=== PATIENT | female | born 2005 | race African-American/Black ===

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

== ENCOUNTER 2024-02-19 19:59 | Emergency (ER) | payer OTHER ==
[~2024-02-19] VITALS: Ht 154.9 cm; Wt 71.8 kg
[2024-02-19 20:02] VITALS: TEMP 98.5
[2024-02-19] MEDS ORDERED: ACET1TAB55 PO (20:12)
[2024-02-19] MEDS: METOCLOPRAMIDE INJ 10MG/2ML VIAL IV ONE (23:40)
[2024-02-19 23:41] LABS: EOS % 0.1 % (0.0-3.0); HEMATOCRIT 35.3 % (36.0-47.0); HEMOGLOBIN 11.8 g/dl (12.0-15.5); LYMPH # 2.3 10^3/uL (1.5-5.0); LYMPH % 27.9 % (24.0-44.0); MEAN CORPUSCULAR HEMOGLOBIN 31.3 pg (27.0-33.0); MEAN CORPUSCULAR HGB CONC 33.4 g/dl (32.0-36.5); MEAN CORPUSCULAR VOLUME 93.6 fl (80.0-96.0); MONO # 0.8 10^3/uL (0.0-0.8); MONO % 9.2 % (2.0-8.0); NEUTROPHILS # 5.2 10^3/uL (1.5-8.5); NEUTROPHILS % 62.6 % (36.0-66.0); PLATELET COUNT, AUTOMATED 140 10^3/uL (150-450); RED BLOOD COUNT 3.77 10^6/uL (4.00-5.40); WHITE BLOOD COUNT 8.4 10^3/uL (4.0-10.0)
[2024-02-19] MEDS: ACETAMINOPHEN *IV* 1,000 MG in IV 1 EA IV ONE (23:46)
[2024-02-20 00:06] LABS: BLOOD UREA NITROGEN 9 MG/DL (9-23); CALCIUM LEVEL 9.3 MG/DL (8.5-10.1); CARBON DIOXIDE LEVEL 23 MMOL/L (20-31); CHLORIDE LEVEL 108 MMOL/L (98-107); CREATININE FOR GFR 1.07 MG/DL (0.55-1.30); GLUCOSE, FASTING 95 MG/DL (60-100); MAGNESIUM LEVEL 1.8 MG/DL (1.8-2.4); POTASSIUM SERUM 4.1 MMOL/L (3.5-5.1); SODIUM LEVEL 141 MMOL/L (136-145)
[2024-02-20 00:08] LABS: THYROID STIMULATING HORMONE 2.517 uIU/ML (0.48-4.17)
[2024-02-20 00:14] LABS: HCG, SERUM QUALITATIVE NEGATIVE (NEGATIVE)
[2024-02-20] MEDS: MAG SULF 1GM/100ML (MAG RUN) 1 GM in IV 1 EA IV ONE (00:20)
[2024-02-20] MEDS ORDERED: KETOROLAC 30 MG/ML 1ML VIAL IV ONE (00:40)
[2024-02-20 01:00] VITALS: BP 116/62; O2SAT 99
[2024-02-20] MEDS ORDERED: FIOR1CAP PO (01:27)
== END 2024-02-20 01:58 | disposition home or self-care (01) ==
LOC: M ED 19:59
DX: G43.909 Migraine, unspecified, not intractable, without status migrainosus (principal); Z79.1 Long term (current) use of non-steroidal anti-inflammatories (NSAID)
CPT/HCPCS: 70450; 80048; 83735; 84443; 84703; 85025; 96374; 96375; 99284; J0131; J1100; J2765; J3475

== ENCOUNTER 2024-09-10 11:18 | Emergency (ER) | payer OTHER ==
[~2024-09-10] VITALS: Ht 157.5 cm; Wt 66.5 kg
[~2024-09-10 11:18] MED LIST: ACET1TAB55 PO; FIOR1CAP PO
[2024-09-10 11:25] VITALS: BP 117/57; TEMP 97.6; O2SAT 100
== END 2024-09-10 12:20 | disposition home or self-care (01) ==
LOC: M ED 11:18
DX: N91.2 Amenorrhea, unspecified (principal); R01.1 Cardiac murmur, unspecified

== ENCOUNTER 2024-11-23 15:21 | Emergency (ER) | payer OTHER ==
[~2024-11-23] VITALS: Ht 157.5 cm; Wt 70.4 kg
[2024-11-23 17:16] LABS: HCG, SERUM QUALITATIVE NEGATIVE (NEGATIVE)
[2024-11-23 18:29] LABS: CALCIUM LEVEL 9.5 MG/DL (8.5-10.1); CARBON DIOXIDE LEVEL 28 MMOL/L (20-31); CHLORIDE LEVEL 105 MMOL/L (98-107); CREATININE FOR GFR 1.29 MG/DL (0.55-1.30); GLOMERULAR FILTRATION RATE 60.9 (>60); POTASSIUM SERUM 3.9 MMOL/L (3.5-5.1); SODIUM LEVEL 138 MMOL/L (136-145)
[2024-11-23 18:32] LABS: BASO # 0.0 10^3/uL (0.0-0.2); BASO % 0.3 % (0.0-1.0); EOS # 0.1 10^3/uL (0.0-0.5); EOS % 0.7 % (0.0-3.0); LYMPH # 3.0 10^3/uL (1.5-5.0); LYMPH % 39.0 % (24.0-44.0); MONO # 0.6 10^3/uL (0.0-0.8); MONO % 7.2 % (2.0-8.0); NEUTROPHILS # 4.0 10^3/uL (1.5-8.5); NEUTROPHILS % 52.7 % (36.0-66.0); PLATELET COUNT, AUTOMATED 215 10^3/uL (150-450)
[2024-11-23 19:41] LABS: KETONE, URINE AUTO RFX NEGATIVE (NEGATIVE); LEUKOCYTE ESTERASE UR AUTO RFX NEGATIVE (NEGATIVE); NITRITE, URINE AUTO RFX NEGATIVE (NEGATIVE); RBC, URINE AUTO RFX 0 /HPF (0-3); SQUAM EPITHELIAL CELL UR AURFX 4 /HPF (0-6); WBC, URINE AUTO RFX 2 /HPF (0-3)
[2024-11-23 19:58] VITALS: BP 123/58; TEMP 97.9; O2SAT 99
== END 2024-11-23 19:59 | disposition home or self-care (01) ==
LOC: M ED 15:21
DX: N93.9 Abnormal uterine and vaginal bleeding, unspecified (principal)

== ENCOUNTER 2024-12-20 06:41 | Emergency (ER) | payer OTHER ==
[~2024-12-20] VITALS: Ht 154.9 cm; Wt 61.4 kg
[2024-12-20] MEDS: IPRATROPIUM 0.5 MG/ALBUTEROL 2.5 MG INH SOL UD 3 ML NEB ONE (08:20)
[2024-12-20] MEDS: ACETAMINOPHEN 500 MG TAB PO ONE (08:51)
[2024-12-20] MEDS ORDERED: MUCI1TAB18 PO (10:05)
[2024-12-20 10:14] VITALS: BP 111/68; TEMP 97.9; O2SAT 99
== END 2024-12-20 10:37 | disposition home or self-care (01) ==
LOC: M ED 06:41
DX: B34.8 Other viral infections of unspecified site (principal); R01.1 Cardiac murmur, unspecified; Z79.899 Other long term (current) drug therapy

== ENCOUNTER 2025-01-11 18:51 | Emergency (ER) | payer OTHER ==
[~2025-01-11] VITALS: Ht 154.9 cm; Wt 68.2 kg
[~2025-01-11 18:51] MED LIST changes: +MUCI1TAB18 PO
[2025-01-11] MEDS ORDERED: FLUC150T9 PO (21:28)
[2025-01-11] MEDS: FLUCONAZOLE 50 MG TABLET PO ONE (21:32)
[2025-01-11 21:47] VITALS: BP 122/60; TEMP 97.4; O2SAT 100
== END 2025-01-11 21:48 | disposition home or self-care (01) ==
LOC: M ED 18:51
DX: B37.31 Acute candidiasis of vulva and vagina (principal); Z79.2 Long term (current) use of antibiotics